=== PATIENT | female | born 1940 | race Caucasian/White ===

== ENCOUNTER 2018-12-15 11:23 | Day surgery (SDC) | payer OTHER ==
[~2018-12-15] VITALS: Ht 167.6 cm; Wt 70.3 kg
[~2018-12-15 11:23] MED LIST: Aspir 8181 MG PO; FENO160 PO; GABA600 PO; IRBESARTAN-HCT1 EACH PO; LEVSOD75 PO; LIDOCAINE HCL30 ML TOP; OMEG1CAP30; Oyster Shell C500 MG PO; Stool Softener100 MG PO; VITAMIN D31000 UNIT PO
--- NOTE | 2018-12-15 12:30 | NUR ---
12/15/18 1230 Gary Small INJECTED INTO BX PORT BY TECH PER DR. BROWN.
== END 2018-12-15 13:27 | disposition home or self-care (01) ==
LOC: ORSCSDS 11:23
PROVIDERS: Student in an Organized Health Care Education/Training Program
PROC: 0DJD8ZZ Inspection of Lower Intestinal Tract, Via Natural or Artificial Opening Endoscopic (ICD-10-PCS; principal; 2018-12-15 12:45)
DX: Z12.11 Encounter for screening for malignant neoplasm of colon (principal); K57.30 Diverticulosis of large intestine without perforation or abscess without bleeding; K64.4 Residual hemorrhoidal skin tags; Z83.71 Family history of colonic polyps; I10 Essential (primary) hypertension; E03.9 Hypothyroidism, unspecified; E78.5 Hyperlipidemia, unspecified; Z79.899 Other long term (current) drug therapy
CPT/HCPCS: J2704; J7120

== ENCOUNTER → 2021-03-01 | Outpatient (CLI) | payer OTHER ==
[2021-03-01 10:42] LABS: Source, Urine Clean Catch
[2021-03-01 11:49] LABS: Appearance, Urine Clear (Clear); Bilirubin, Urine Neg (Neg); Blood, Urine Neg (Neg); Color, Urine Yellow (P-Yellow); Glucose Qualitative, Urine Neg (Neg); Ketones, Urine Neg (Neg); Leukocyte Esterase, Urine Neg (Neg); Nitrite, Urine Neg (Neg); Protein, Urine Neg (Neg); Urobilinogen, Urine NORM (Normal)
== END ==
LOC: LAB SHORT 10:39 → OLS 10:39
PROVIDERS: Nurse Practitioner Family
DX: R31.29 Other microscopic hematuria (principal); Z88.2 Allergy status to sulfonamides; Z88.1 Allergy status to other antibiotic agents; Z88.8 Allergy status to other drugs, medicaments and biological substances; Z88.6 Allergy status to analgesic agent
CPT/HCPCS: 81003

== ENCOUNTER → 2021-03-26 | Outpatient (CLI) | payer OTHER | END | disposition home or self-care (01) | LOC: LAB 16:55 → LAB SHORT 16:55 | DX: N39.0 Urinary tract infection, site not specified (principal) | CPT/HCPCS: 87077; 87086; 87186 ==

== ENCOUNTER 2022-01-30 08:01 | Day surgery (SDC) | payer OTHER ==
[~2022-01-30 08:01] MED LIST changes: +ALEN70 PO; +IRBESARTAN-HCT1 EAC3; +LATA.005SO BOTHEYES; +MULVITA; +TIMO.5OPSO BOTHEYES
== END 2022-02-04 23:25 | disposition home or self-care (01) ==
LOC: MOI US 08:01
DX: C50.412 Malignant neoplasm of upper-outer quadrant of left female breast (principal)
CPT/HCPCS: 19285; 77065; A4648

== ENCOUNTER 2022-02-06 08:03 | Day surgery (SDC) | payer OTHER ==
[~2022-02-06] VITALS: Ht 165.1 cm; Wt 72.1 kg
--- NOTE | 2022-02-06 13:22 | NUR ---
Patient up to Ambulate independently W/USE OF CANE. Discharge instructions reviewed with patient. Patient verbalizes understanding. Copy given to patient to take home. Dressing to procedure site clean, dry, intact with no visible drainage, swelling, erythema or bruising noted. Dressing to procedure site clean, dry, intact with no visible drainage, swelling, erythema or bruising noted. Discharged via wheelchair to private car for ride home.
== END 2022-02-06 23:03 | disposition home or self-care (01) ==
LOC: ORSCMMR 08:03
PROVIDERS: Surgery
PROC: 0HBU0ZZ Excision of Left Breast, Open Approach (ICD-10-PCS; principal; 2022-02-06 10:00)
PROC: 07B60ZX Excision of Left Axillary Lymphatic, Open Approach, Diagnostic (ICD-10-PCS; principal; 2022-02-06 10:00)
DX: C50.412 Malignant neoplasm of upper-outer quadrant of left female breast (principal); Z17.0 Estrogen receptor positive status [ER+]; I10 Essential (primary) hypertension; K21.9 Gastro-esophageal reflux disease without esophagitis; E78.5 Hyperlipidemia, unspecified; E03.9 Hypothyroidism, unspecified; G62.9 Polyneuropathy, unspecified; H40.1130 Primary open-angle glaucoma, bilateral, stage unspecified; Z79.82 Long term (current) use of aspirin; Z79.899 Other long term (current) drug therapy
CPT/HCPCS: 38792; 88305; 88307; 88341; 88342; A9270; A9520; J0690; J1100; J1885; J2370; J2405; J2704; J2795; J3010; J7120; Q9968

== ENCOUNTER → 2023-05-01 | Outpatient (CLI) | payer OTHER ==
[2023-05-01 09:58] LABS: BASOPHILS ABSOLUTE AUTO 0.08 K/mm3 (0.00-0.23); BASOPHILS PERCENT AUTO 1 % (0-2); EOSINOPHILS ABSOLUTE AUTO 0.08 K/mm3 (0.00-0.68); EOSINOPHILS PERCENT AUTO 1 % (0-6); Hematocrit 36.4 % (33.0-51.0); Hemoglobin 12.6 g/dL (11.5-16.0); IMMATURE GRAN PERCENT AUTO 1 % (0-1); LYMPHOCYTES ABSOLUTE AUTO 0.92 K/mm3 (0.84-5.20); LYMPHOCYTES PERCENT AUTO 8 % (21-46); MONOCYTES ABSOLUTE AUTO 1.18 K/mm3 (0.16-1.47); MONOCYTES PERCENT AUTO 11 % (4-13); Mean Corpuscular HGB 31.3 pg (26.0-34.0); Mean Corpuscular HGB Conc 34.6 g/dL (31.5-36.5); Mean Corpuscular Volume 91 fL (80-100); Mean Platelet Volume 9.3 fL (9.1-12.4); NEUTROPHILS ABSOLUTE AUTO 8.56 K/mm3 (1.96-9.15); NEUTROPHILS PERCENT AUTO 79 % (41-73); Platelet Count 461 K/mm3 (150-400); RDW Coefficient Variation 11.9 % (11.7-14.2); RDW Standard Deviation 39.5 fL (35.1-46.3); Red Blood Cell Count 4.02 M/mm3 (3.80-5.20); White Blood Cell Count 10.92 K/mm3 (4.00-11.30)
[2023-05-01 10:09] LABS: Albumin, Blood 2.9 g/dL (3.4-5.0); Albumin/Globulin Ratio 0.7 (0.8-1.8); Bilirubin, Total 0.6 mg/dL (0.1-1.0); Bun/Creatinine Ratio 17.5 (12.0-20.0); Calcium, Blood 9.2 mg/dL (8.5-10.1); Creatinine, Blood 0.8 mg/dL (0.40-1.00); Globulin, Blood 4.4 g/dL (2.2-4.0); Potassium, Blood 4.5 mmol/L (3.5-5.5); Total Protein, Blood 7.3 g/dL (6.4-8.2)
[2023-05-03 21:09] LABS: HBSAG SCREEN Negative (Negative); HCV AB Non Reactive (Non Reactive); HEP B CORE AB, TOT Negative (Negative)
== END | disposition home or self-care (01) ==
LOC: LAB SHORT 09:53 → LAB 09:53
PROVIDERS: Emergency Medicine
DX: R11.2 Nausea with vomiting, unspecified (principal); R74.01 Elevation of levels of liver transaminase levels
CPT/HCPCS: 80053; 85025; 86704; 86708; 86803; 87340

== ENCOUNTER → 2023-05-02 | Outpatient (CLI) | payer OTHER ==
[2023-05-02 13:56] LABS: BASOPHILS ABSOLUTE AUTO 0.06 K/mm3 (0.00-0.23); BASOPHILS PERCENT AUTO 1 % (0-2); EOSINOPHILS ABSOLUTE AUTO 0.06 K/mm3 (0.00-0.68); EOSINOPHILS PERCENT AUTO 1 % (0-6); Hematocrit 33.6 % (33.0-51.0); Hemoglobin 11.4 g/dL (11.5-16.0); IMMATURE GRAN ABSOLUTE AUTO 0.26 K/mm3 (0.00-0.10); IMMATURE GRAN PERCENT AUTO 3 % (0-1); LYMPHOCYTES ABSOLUTE AUTO 1.14 K/mm3 (0.84-5.20); LYMPHOCYTES PERCENT AUTO 11 % (21-46); MONOCYTES ABSOLUTE AUTO 1.39 K/mm3 (0.16-1.47); MONOCYTES PERCENT AUTO 13 % (4-13); Mean Corpuscular HGB 30.9 pg (26.0-34.0); Mean Corpuscular HGB Conc 33.9 g/dL (31.5-36.5); Mean Corpuscular Volume 91 fL (80-100); Mean Platelet Volume 8.6 fL (9.1-12.4); NEUTROPHILS ABSOLUTE AUTO 7.54 K/mm3 (1.96-9.15); NEUTROPHILS PERCENT AUTO 72 % (41-73); Platelet Count 440 K/mm3 (150-400); RDW Coefficient Variation 12.2 % (11.7-14.2); RDW Standard Deviation 40.4 fL (35.1-46.3); Red Blood Cell Count 3.69 M/mm3 (3.80-5.20); White Blood Cell Count 10.45 K/mm3 (4.00-11.30)
[2023-05-02 14:10] LABS: Albumin, Blood 2.7 g/dL (3.4-5.0); Albumin/Globulin Ratio 0.6 (0.8-1.8); Bilirubin, Total 0.4 mg/dL (0.1-1.0); Bun/Creatinine Ratio 18.5 (12.0-20.0); Creatinine, Blood 0.81 mg/dL (0.40-1.00); Globulin, Blood 4.2 g/dL (2.2-4.0); Potassium, Blood 4.3 mmol/L (3.5-5.5); Total Protein, Blood 6.9 g/dL (6.4-8.2)
[2023-05-04 23:09] LABS: HBSAG SCREEN Negative (Negative); HCV AB Non Reactive (Non Reactive); HEP B CORE AB, TOT Negative (Negative)
== END | disposition home or self-care (01) ==
LOC: LAB 13:06 → LAB SHORT 13:06
PROVIDERS: Physician Assistant
DX: R94.5 Abnormal results of liver function studies (principal)
CPT/HCPCS: 80053; 83690; 85025; 86704; 86708; 86803; 87340